=== PATIENT | male | born 1975 | race Hispanic/Latino ===

== ENCOUNTER 2018-08-18 09:39 | Emergency (ER) | payer OTHER ==
[~2018-08-18] VITALS: Ht 172.7 cm; Wt 101.8 kg
--- NOTE | 2018-08-18 13:27 | EKG ---
[facility] [address] [place], [place] [address] Signed Normal sinus rhythm Inferior infarct , age undetermined Abnormal ECG No previous ECGs available Confirmed by SUSY VALVERDE DO ([id number]) on 08/18/2018 1:26:56 PM Electronically Signed By: SUSY VALVERDE DO 08/18/18 1327 PATIENT NAME: CHANNING MCCURDY Electrocardiogram DATE OF : 71 PHYSICIAN: SUSY VALVERDE DO REPORT #: [id number] REPORT IS CONFIDENTIAL AND NOT TO BE RELEASED WITHOUT AUTHORIZATION
== END 2018-08-18 12:05 | disposition home or self-care (01) ==
LOC: ED 09:39
DX: R10.13 Epigastric pain (principal)
CPT/HCPCS: 71045; 80053; 83690; 84484; 85025; 93005; 93010; 99284-25